=== PATIENT | male | born 1960 | race Caucasian/White ===

== ENCOUNTER 2017-01-05 22:57 | Emergency (ER) | payer BC ==
[2017-01-05] MEDS ORDERED: methylPREDNISolone Sod Succ/PF 125 MG/2 ML VIAL ONE (23:38)
[2017-01-05] MEDS ORDERED: Benzonatate 100 MG CAP ONE (23:48)
[2017-01-06 00:01] LABS: #Basophils 0.1 thou/uL (0.0-0.2); #Lymphocytes 1.7 thou/uL (1.20-3.40); #Monocytes 1.9 thou/uL (0.11-0.59); #Neutrophils 9.4 thou/uL (1.40-6.50); %Basophils 1.3 % (0.0-1.0); %Eosinophils 0.3 % (0.0-10.0); %Lymphocytes 12.7 % (21.0-51.0); %Monocytes 14.7 % (0.0-10.0); Hemoglobin 16.4 g/dL (14.0-18.0); Mean Corpuscular HGB CONC 33.3 g/dL (32.0-36.0); Mean Corpuscular Hemoglobin 32.9 pg (27.0-31.0); PLT Morphology Comment Appears Adequate; Platelet Count 164 thou/uL (130-400); RBC Distribution Width 12.3 % (11.5-14.5); RBC Morphology Normal; Red Blood Cell (RBC) Count 4.93 mill/uL (4.70-6.10); White Blood Cell (WBC) Count 12.9 thou/uL (4.8-10.8)
[2017-01-06 00:03] LABS: MDiff Complete? YES; Manual Diff?? NO
[2017-01-06 00:13] LABS: CKMB 5.1 ng/mL (0-6.6); Troponin I Less than 0.010 ng/mL (< 0.028)
[2017-01-06 00:27] LABS: ALT (SGPT) 34 U/L (0-55); AST (SGOT) 28 U/L (5-34); Alkaline Phosphatase 92 U/L (40-150); Anion Gap 13 mmol/L (10-20); BUN (Urea Nitrogen) 20 mg/dL (8.4-25.7); Bilirubin, Total 0.3 mg/dL (0.2-1.2); Calc. Creatinine Clearance 0 mL/min (70-130); Calcium 9.2 mg/dL (7.8-10.44); Carbon Dioxide 26 mmol/L (22-29); Chloride 104 mmol/L (98-107); Estimated GFR-MDRD 57; Globulin 3.9 g/dL (2.4-3.5); Glucose 128 mg/dL (70-105); Protein, Total 7.9 g/dL (6.0-8.3); Sodium 139 mmol/L (136-145)
--- NOTE | 2017-01-06 07:42 | RAD ---
CHEST 2 VIEWS: DATE: 01/05/17. COMPARISON: Comparison is made with the 12/05/16 study done at [facility]. The heart is normal in si ze today. The vessels show no congestion. There are no pleural effusions. Faint calcification is seen in the aortic arch. No lobar consolidation was seen; however, there may be a very slight promi nence of lung markings overall today. The mediastinum was unremarkable and the trachea was midline. IMPRESSION: 1. Very slight prominence of interstitial lung markings. 2. Arteriosclerosis. POS: HOME
== END 2017-01-06 00:53 | disposition short-term general hospital (02) ==
LOC: BURERS 22:57
DX: J44.1 Chronic obstructive pulmonary disease with (acute) exacerbation (principal); J18.1 Lobar pneumonia, unspecified organism; I10 Essential (primary) hypertension; F17.210 Nicotine dependence, cigarettes, uncomplicated; Z79.2 Long term (current) use of antibiotics; Z79.899 Other long term (current) drug therapy
CPT/HCPCS: 71020; 80053; 82553; 83880; 84484; 85025; 85379; 87040; 93005; 94640; 96365; 96375; A4216; J1956; J2930; J7620

== ENCOUNTER 2017-03-18 17:55 | Emergency (ER) | payer BC ==
[2017-03-18] MEDS ORDERED: Nitroglycerin 0.4 MG TAB (25 Tab Bottle) ONE (18:19)
[2017-03-18] MEDS ORDERED: Mag-Al Plus 1200 MG/1200 MG/120 MG/30 ML UDCUP ONE ×2 (18:28→18:50)
[2017-03-18] MEDS ORDERED: Lidocaine Viscous Sol 2% 15 ml UD Cup ONE ×2 (18:28→18:50)
[2017-03-18 18:37] LABS: #Basophils 0.2 thou/uL (0.0-0.2); #Eosinphils 0.3 thou/uL (0.0-0.7); #Lymphocytes 2.4 thou/uL (1.20-3.40); #Monocytes 0.8 thou/uL (0.11-0.59); #Neutrophils 5.6 thou/uL (1.40-6.50); %Basophils 2.5 % (0.0-1.0); %Eosinophils 3.5 % (0.0-10.0); %Lymphocytes 25.4 % (21.0-51.0); %Monocytes 8.9 % (0.0-10.0); %Neutrophils 59.7 % (42.0-75.0); Hemoglobin 16.5 g/dL (14.0-18.0); Mean Corpuscular HGB CONC 34.2 g/dL (32.0-36.0); Mean Corpuscular Hemoglobin 33.6 pg (27.0-31.0); Mean Corpuscular Volume 98.3 fl (80.0-94.0); Mean Platelet Volume 11.5 fL (7.4-10.4); Platelet Count 177 thou/uL (130-400); RBC Distribution Width 12.8 % (11.5-14.5); Red Blood Cell (RBC) Count 4.89 mill/uL (4.70-6.10); White Blood Cell (WBC) Count 9.4 thou/uL (4.8-10.8)
[2017-03-18] MEDS ORDERED: Lidocaine 2% Viscous Solution 10 ML, Mag Hydrox/Al Hydrox/Simeth 30 ML SSW SCH ×2 (18:45)
[2017-03-18 18:51] LABS: ALT (SGPT) 18 U/L (8-55); AST (SGOT) 16 U/L (5-34); Albumin 4.2 g/dL (3.5-5.0); Alkaline Phosphatase 82 U/L (40-150); Anion Gap 18 mmol/L (10-20); BUN (Urea Nitrogen) 12 mg/dL (8.4-25.7); Bilirubin, Total 0.4 mg/dL (0.2-1.2); CKMB 1.1 ng/mL (0-6.6); Calc. Creatinine Clearance 0 mL/min (70-130); Calcium 9.1 mg/dL (7.8-10.44); Carbon Dioxide 20 mmol/L (22-29); Chloride 105 mmol/L (98-107); Estimated GFR-MDRD 64; Globulin 3.9 g/dL (2.4-3.5); Glucose 134 mg/dL (70-105); Lipase 26 U/L (8-78); Protein, Total 8.1 g/dL (6.0-8.3); Sodium 139 mmol/L (136-145); Troponin I 0.018 ng/mL (< 0.028)
[2017-03-18] MEDS ORDERED: Lidocaine Viscous Sol 2% 15 ml UD Cup SSW SCH (19:00)
[2017-03-18] MEDS ORDERED: Mag-Al Plus 1200 MG/1200 MG/120 MG/30 ML UDCUP SSW SCH (19:00)
[2017-03-18] MEDS ORDERED: Ketorolac Tromethamine 30 MG/ML VIAL ONE (19:12)
[2017-03-18 22:02] LABS: Troponin I Less than 0.010 ng/mL (< 0.028)
--- NOTE | 2017-03-18 23:28 | RAD ---
PORTABLE CHEST 03/18/17 An AP portable film at 1908 is compared with a 01/05/17 study. There has been on adverse interval change. The heart is normal in size and the lungs are clear. The mediastinum shows no widening or shift. Some faint calcification is seen in the aortic arch. The tra anjum is midline. No bony abnormalities were seen. IMPRESSION: No acute thoracic finding. POS: HOME
== END 2017-03-18 22:15 | disposition home or self-care (01) ==
LOC: BURERS 17:55
DX: R10.13 Epigastric pain (principal); I10 Essential (primary) hypertension; Z87.891 Personal history of nicotine dependence; Z79.899 Other long term (current) drug therapy
CPT/HCPCS: 36415; 71010; 80053; 82553; 83690; 84484; 85025; 93005; 96374; J1885

== ENCOUNTER 2017-05-10 07:51 | Emergency (ER) | payer BC ==
[2017-05-10] MEDS ORDERED: Ketorolac Tromethamine 60 MG/2 ML VIAL ONE (08:21)
== END 2017-05-10 09:12 | disposition home or self-care (01) ==
LOC: BURERS 07:51
DX: M54.5 Low back pain (principal); I10 Essential (primary) hypertension; F17.210 Nicotine dependence, cigarettes, uncomplicated
CPT/HCPCS: 96372; J1885

== ENCOUNTER 2017-05-23 13:56 | Emergency (ER) | payer BC ==
[2017-05-23 15:02] LABS: Bilirubin Negative (Negative); Blood, Urine Trace (Negative); Clarity Clear (Clear); Glucose, Urine (Dipstick) Negative (Negative); Leukocyte Negative (Negative); Nitrite Negative (Negative); Protein, Urine (Dipstick) 30 mg/dL (Neg-Trace); Specific Gravity, Urine 1.025 (1.005-1.030)
[2017-05-23 15:08] LABS: Bacteria/HPF None Seen HPF (None Seen); RBC/HPF 0-3 HPF (0-3); Squamous Epithelial 0-3 HPF (0-3); WBC/HPF None Seen HPF (0-3)
[2017-05-23] MEDS ORDERED: HYDROcodone/Acetaminophen 5/325 mg Tablet ONE (15:24)
== END 2017-05-23 15:29 | disposition home or self-care (01) ==
LOC: BURERS 13:56
DX: M54.5 Low back pain (principal); I10 Essential (primary) hypertension; F17.210 Nicotine dependence, cigarettes, uncomplicated; Z79.899 Other long term (current) drug therapy
CPT/HCPCS: 81003; 81015; 99283

== ENCOUNTER 2017-05-26 13:37 | Emergency (ER) | payer BC ==
[2017-05-26] MEDS ORDERED: HYDROcodone/Acetaminophen 10/325 mg Tablet ONE (14:01)
[2017-05-26 14:12] LABS: #Basophils 0.2 thou/uL (0.0-0.2); #Eosinphils 0.3 thou/uL (0.0-0.7); #Lymphocytes 2.5 thou/uL (1.20-3.40); #Neutrophils 5.9 thou/uL (1.40-6.50); %Basophils 1.7 % (0.0-1.0); %Eosinophils 2.7 % (0.0-10.0); %Lymphocytes 25.6 % (21.0-51.0); %Monocytes 9.9 % (0.0-10.0); %Neutrophils 60.1 % (42.0-75.0); Hemoglobin 15.4 g/dL (14.0-18.0); Mean Corpuscular HGB CONC 33.5 g/dL (32.0-36.0); Mean Corpuscular Hemoglobin 33.2 pg (27.0-31.0); Mean Corpuscular Volume 99.3 fl (80.0-94.0); Mean Platelet Volume 10.7 fL (7.4-10.4); Platelet Count 149 thou/uL (130-400); RBC Distribution Width 11.8 % (11.5-14.5); Red Blood Cell (RBC) Count 4.64 mill/uL (4.70-6.10); White Blood Cell (WBC) Count 9.8 thou/uL (4.8-10.8)
[2017-05-26 14:28] LABS: ALT (SGPT) 18 U/L (8-55); AST (SGOT) 15 U/L (5-34); Albumin 4.1 g/dL (3.5-5.0); Alkaline Phosphatase 74 U/L (40-150); Anion Gap 15 mmol/L (10-20); BUN (Urea Nitrogen) 9 mg/dL (8.4-25.7); Bilirubin, Total 0.3 mg/dL (0.2-1.2); Calc. Creatinine Clearance 0 mL/min (70-130); Calcium 9.2 mg/dL (7.8-10.44); Carbon Dioxide 24 mmol/L (22-29); Chloride 106 mmol/L (98-107); Estimated GFR-MDRD 75; Globulin 3.2 g/dL (2.4-3.5); Glucose 108 mg/dL (70-105); Potassium 3.4 mmol/L (3.5-5.1); Protein, Total 7.3 g/dL (6.0-8.3); Sodium 142 mmol/L (136-145)
[2017-05-26 14:56] LABS: Bilirubin Negative (Negative); Blood, Urine Negative (Negative); Clarity Clear (Clear); Glucose, Urine (Dipstick) Negative (Negative); Leukocyte Negative (Negative); Nitrite Negative (Negative); Protein, Urine (Dipstick) Negative (Neg-Trace); Urobilinogen 0.2 mg/dL (0.2-1.0)
[2017-05-26 14:57] LABS: Specific Gravity, Urine 1.006 (1.002-1.036)
--- NOTE | 2017-05-26 22:37 | CT ---
CT OF THE LUMBAR SPINE WITHOUT CONTRAST 05/26/[address] of the lumbar spine was done for evaluation of back pain. Axial slices were acquired, foll owed by coronal and sagittal reconstructions. No fracture or area of bony destruction was seen in the area scanned that covered approximately from lower T11 through the sacrum. No central canal or foraminal stenosis was seen at any level. No foca l disc herniations were seen. There is some mild concentric bulging of the disc at L4-L5 and L5-S1. The SI joints were unremarkable. The paraspinous soft tissues were unremarkable. There is slight dil ation of the distal abdominal aorta that constitutes a small aneurysm. The AP diameter is only 2.8 c m, however. IMPRESSION: 1. No findings to explain the patient's back pain. 2. 2.8 cm distal abdominal aortic aneurysm. Yearly followup recommended. POS: HOME
== END 2017-05-26 15:07 | disposition home or self-care (01) ==
LOC: BURERS 13:37
DX: M54.5 Low back pain (principal); I10 Essential (primary) hypertension; F17.210 Nicotine dependence, cigarettes, uncomplicated
CPT/HCPCS: 72131; 80053; 81003; 85025

== ENCOUNTER 2019-03-03 21:52 | Emergency (ER) | payer BC ==
--- NOTE | 2019-03-03 22:20 | RAD ---
EXAM: Chest 2 views: HISTORY: Chest pain and shortness of breath COMPARISON: None. FINDINGS: There is a normal-sized cardiomediastinal silhouette. Atherosclerotic calcifications are seen in the aorta. There is no evidence of consolidation, mass, or pleural effusion. The bones are unremarkable. IMPRESSION: No evidence of acute cardiopulmonary disease
[2019-03-03] MEDS ORDERED: Ketorolac Tromethamine 60 MG/2 ML VIAL ONE (22:30)
[2019-03-03] MEDS ORDERED: Cyclobenzaprine 10 MG TAB ONE (22:32)
== END 2019-03-03 22:42 | disposition home or self-care (01) ==
LOC: BURERS 21:52
DX: M54.6 Pain in thoracic spine (principal); F17.210 Nicotine dependence, cigarettes, uncomplicated; I10 Essential (primary) hypertension; Z79.899 Other long term (current) drug therapy
CPT/HCPCS: 71046; 96372; J1885

== ENCOUNTER 2019-04-18 21:33 | Emergency (ER) | payer BC ==
[2019-04-18] MEDS ORDERED: Lidocaine 2% w/ Epi 1:200K 10 ML VIAL ONE ×2 (21:42→21:43)
== END 2019-04-18 21:59 | disposition home or self-care (01) ==
LOC: BURERS 21:33
DX: L02.212 Cutaneous abscess of back [any part, except buttock and flank] (principal); I10 Essential (primary) hypertension; F17.210 Nicotine dependence, cigarettes, uncomplicated; Z79.899 Other long term (current) drug therapy
CPT/HCPCS: 10061

== ENCOUNTER 2019-06-24 10:34 | Emergency (ER) | payer BC ==
[2019-06-24] MEDS ORDERED: Ketorolac Tromethamine 60 MG/2 ML VIAL ONE (11:08)
--- NOTE | 2019-06-24 21:33 | RAD ---
CHEST TWO VIEWS: 06/24/19 PA and lateral views are compared with the 03/29/19 study. The right lung base seems slightly dirtier with respect to the lung markings than before. A minimal infiltrate here is possible. There certainly is not a significant lobar consolidation. The left lung is clear. There are no effusions. There is no vascular congestion or edema. Calcific changes are see n in the aortic arch. The heart size is normal. IMPRESSION: Question of slight increased markings in the right lung base. An early infection or bronchitis is not excluded. POS: HOME
== END 2019-06-24 11:15 | disposition home or self-care (01) ==
LOC: BURERS 10:34
DX: S29.011A Strain of muscle and tendon of front wall of thorax, initial encounter (principal); J06.9 Acute upper respiratory infection, unspecified; I10 Essential (primary) hypertension; J44.9 Chronic obstructive pulmonary disease, unspecified; Z87.891 Personal history of nicotine dependence; Z79.899 Other long term (current) drug therapy; Z79.51 Long term (current) use of inhaled steroids; X58.XXXA Exposure to other specified factors, initial encounter
CPT/HCPCS: 71046; 93005; 96372; J1885

== ENCOUNTER 2019-10-10 19:07 | Emergency (ER) | payer BC ==
[2019-10-10] MEDS ORDERED: Fluorescein Opthalmic Strip ONE (19:28)
[2019-10-10] MEDS ORDERED: Tetracaine 0.5% OPHTH SOLN/PF 4 ML BOT ONE (19:28)
[2019-10-10] MEDS ORDERED: traMADol HCl 50 MG TAB ONE (19:43)
[2019-10-10] MEDS ORDERED: predniSONE 20 MG TAB ONE (19:43)
== END 2019-10-10 20:10 | disposition home or self-care (01) ==
LOC: BURERS 19:07
DX: B34.9 Viral infection, unspecified (principal); B02.9 Zoster without complications; I10 Essential (primary) hypertension; J44.9 Chronic obstructive pulmonary disease, unspecified; Z87.891 Personal history of nicotine dependence
CPT/HCPCS: 87804; 94640; J7512; J7620

== ENCOUNTER 2019-10-13 08:01 | Emergency (ER) | payer BC | END 2019-10-13 08:38 | disposition home or self-care (01) | LOC: BURERS 08:01 | DX: R11.2 Nausea with vomiting, unspecified (principal); I10 Essential (primary) hypertension; J44.9 Chronic obstructive pulmonary disease, unspecified; Z87.891 Personal history of nicotine dependence; Z79.51 Long term (current) use of inhaled steroids; Z79.899 Other long term (current) drug therapy | CPT/HCPCS: 99283 ==

== ENCOUNTER 2019-11-19 11:27 | Emergency (ER) | payer BC ==
[2019-11-19] MEDS ORDERED: Lidocaine 1% PF 5 ML VIAL ONE (11:42)
[2019-11-19] MEDS ORDERED: Bacitracin 1 PK ONE (12:13)
[2019-11-19] MEDS ORDERED: Adacel (T-DAP) 0.5 ML SYRINGE ONE (12:17)
== END 2019-11-19 12:16 | disposition home or self-care (01) ==
LOC: BURERS 11:27
DX: L02.213 Cutaneous abscess of chest wall (principal); L03.313 Cellulitis of chest wall; I10 Essential (primary) hypertension; J44.9 Chronic obstructive pulmonary disease, unspecified; F17.210 Nicotine dependence, cigarettes, uncomplicated; Z79.899 Other long term (current) drug therapy; Z23 Encounter for immunization
CPT/HCPCS: 10060; 90471; 90715; J2001

== ENCOUNTER 2019-11-24 14:09 | Emergency (ER) | payer BC | END 2019-11-24 17:00 | disposition left against medical advice (07) | LOC: BURERS 14:09 | DX: Z53.21 Procedure and treatment not carried out due to patient leaving prior to being seen by health care provider (principal) ==

== ENCOUNTER 2020-09-01 12:56 | Emergency (ER) | payer BC ==
[2020-09-01] MEDS ORDERED: Meclizine HCl 25 MG TAB ONE (13:17)
[2020-09-01 13:24] LABS: #Basophils 0.3 thou/uL (0.0-0.2); #Eosinphils 0.3 thou/uL (0.0-0.7); #Lymphocytes 1.5 thou/uL (1.20-3.40); #Monocytes 1.4 thou/uL (0.11-0.59); #Neutrophils 11.8 thou/uL (1.40-6.50); %Basophils 1.7 % (0.0-1.0); %Eosinophils 1.7 % (0.0-10.0); %Lymphocytes 10.1 % (21.0-51.0); %Monocytes 9.1 % (0.0-10.0); %Neutrophils 77.4 % (42.0-75.0); Hemoglobin 15.1 g/dL (14.0-18.0); Mean Corpuscular HGB CONC 31.5 g/dL (32.0-36.0); Mean Platelet Volume 11.5 fL (7.4-10.4); Platelet Count 157 thou/uL (130-400); RBC Distribution Width 12.2 % (11.5-14.5); Red Blood Cell (RBC) Count 4.71 mill/uL (4.70-6.10); White Blood Cell (WBC) Count 15.2 thou/uL (4.8-10.8)
[2020-09-01 13:39] LABS: ALT (SGPT) 19 U/L (8-55); AST (SGOT) 13 U/L (5-34); Alkaline Phosphatase 92 U/L (40-110); Anion Gap 16 mmol/L (10-20); BUN (Urea Nitrogen) 13 mg/dL (8.4-25.7); Bilirubin, Total 0.4 mg/dL (0.2-1.2); Calc. Creatinine Clearance 0 mL/min (70-130); Calcium 8.8 mg/dL (7.8-10.44); Carbon Dioxide 25 mmol/L (23-31); Chloride 104 mmol/L (98-107); Estimated GFR-MDRD 64; Globulin 2.9 g/dL (2.4-3.5); Glucose 151 mg/dL (80-115); Potassium 4.6 mmol/L (3.5-5.1); Protein, Total 6.9 g/dL (5.8-8.1); Sodium 140 mmol/L (136-145)
[2020-09-01] MEDS ORDERED: Aspirin Chewable 81 MG TAB ONE (13:55)
--- NOTE | 2020-09-01 14:01 | CT ---
CT OF THE BRAIN WITHOUT CONTRAST: History: Nausea, vomiting, weakness, dizziness. FINDINGS: No evidence of acute infarct, hemorrhage, midline shift, or abnormal extraaxial fluid collections are seen. The ventricular size is normal and the basilar cisterns patent. The bony calvarium is intact. There is mucosal disease in the right maxillary sinus. The mastoid air cells are clear. IMPRESSION: No CT evidence of acute intracranial process. POS: [facility]
[2020-09-01] MEDS ORDERED: Acetaminophen 500 MG TAB ONE ×2 (14:10)
[2020-09-01] MEDS ORDERED: Metoclopramide HCl 10 MG/2 ML VIAL ONE (14:14)
--- NOTE | 2020-09-01 14:53 | CT ---
CTA HEAD WITH IV CONTRAST AND 3D POST PROCESSING CTA NECK WITH IV CONTRAST AND 3D POST PROCESSING: History: Dizziness. FINDINGS: Vascular calcifications are present. There is 50-60% stenosis in the left proximal ICA. There is othe rwise good flow in the carotid and vertebral basilar systems without evidence of major branch occlusi on or aneurysm formation. A dominant left vertebral artery is present. There are bullous changes in the upper lung akers. There is an 18 mm enhancing mass in the right parotid gland. This may represent a neoplasm and should be evaluated by ENT. CODE T POS: [facility]
[2020-09-01] MEDS ORDERED: Morphine 2 MG/ML VIAL ONE (16:08)
[2020-09-01] MEDS ORDERED: Iopamidol 370 76% 100 ML VIAL ONE (16:19)
== END 2020-09-01 17:14 | disposition short-term general hospital (02) ==
LOC: BURERS 12:56
DX: R42 Dizziness and giddiness (principal); R11.2 Nausea with vomiting, unspecified; I10 Essential (primary) hypertension; J44.9 Chronic obstructive pulmonary disease, unspecified; Z79.82 Long term (current) use of aspirin; Z79.899 Other long term (current) drug therapy
CPT/HCPCS: 0042T; 36415; 70450; 70496; 70498; 80053; 84484; 85025; 93005; 96374; 96375; J2270; J2765; Q9967